=== PATIENT | female | born 1990 | race Hispanic/Latino ===

== ENCOUNTER 2021-10-27 21:28 | Emergency (ER) | payer OTHER, SELFPAY ==
--- OUTSIDE RECORDS SUMMARY | 2021-10-27 21:30 | XMS REPORT | Continuity of Care Document ---
:1990 Author Organization [facility] t Address [address] [place] [address] Care Team Providers Name Role Phone TEDDY Attending Clinician Unavailable MD BRETT ESPINAL Attending Clinician Unavailable TEDDY Admitting Clinician Unavailable MD BRETT ESPINAL Admitting Clinician Unavailable Problems This patient has no known problems. Allergies, Adverse Reactions, Alerts This patient has no known allergies or adverse reactions. Medications This patient has no known medications. Procedures This patient has no known procedures. Encounters Start End Encounter Admission Attending Care Care Encounter Source Date/Time Date/Time Type Type Clinicians Facility Department ID 2020-03-22 2020-03-24 [id number] [place] 00:00:00 00:00:00 JENN[facility]ER [address] 2020-03-21 2020-03-21 [id number] 00:[facility] 00:00:00 JENNIFER [address] Results Test Description Test Time Test Comments Results Result Comments Source SARS-CoV-2 (COVID-19) RNA [Presence] in Respiratory sp ecimen by 2020-03-21 21:45:54 NEIL with probe detection Test Item Value Reference Range Interpretation Comme nts SARS-CoV-2 (COVID-19) RNA [Presence] in Respiratory Not detected No t-Detected specimen by NEIL with probe detection (test code = 10002-8)
--- NOTE | 2021-10-27 22:11 | RAD REPORT ---
EXAM DESCRIPTION: RAD - Ankle Left 3 View -10/27/2021 10:02 pm CLINICAL HISTORY: Left ankle pain status post injury FINDINGS: Moderately displaced oblique fracture distal left fibula. Widening of the medial clear space indicative of injury to deltoid ligament.
[2021-10-27] MEDS ORDERED: FENTANYL CITR 100 MCG/2 ML ONE (22:43)
--- NOTE | 2021-10-27 23:38 | EDPHYS ---
Physician Documentation [facility] Name: Cherry Killian Age: 31 yrs Sex: Female : 1990 Arrival Date: 10/27/2021 Time: 21:29 Bed 23 Private MD: ED Physician Fabian Casiano HPI: 10/27 22:20 This 31 yrs old Female presents to ER via EMS with complaints of Ankle Injury. cp 22:20 The patient presents with decreased range of motion, a deformity, an injury, pain, that cp is acute. The complaints affect the left ankle. Onset: The symptoms/episode began/occurred just prior to arrival. Context: resulted from a mis-step by the patient, The mechanism of injury involved inversion of the affected ankle. The patient is unable to bear weight. The patient is not able to ambulate. Associated signs and symptoms: The patient has no apparent associated signs or symptoms. Patient reports history of spraining left ankle and tonight while taking out trash, rolled ankle. Patient arrives via EMS with ankle splinted. Historical: - Allergies: 21:31 No Known Allergies; ld1 - Home Meds: 21:31 None [Active]; ld1 - PMHx: 21:31 None; ld1 - PSHx: 21:31 None; ld1 - Immunization history:: Adult Immunizations up to date, Client reports receiving the 2nd dose of the Covid vaccine. - Social history:: Smoking status: Patient denies any tobacco usage or history of. Patient/guardian denies using alcohol. ROS: 22:25 MS/extremity: Positive for injury or acute deformity, decreased range of motion, cp ecchymosis, pain, swelling, tenderness, of the left ankle, Negative for paresthesias. 22:25 Constitutional: Negative for body aches, chills, fever, poor PO intake. cp 22:25 Neck: Negative for pain with movement, pain at rest, stiffness. 22:25 Cardiovascular: Negative for chest pain. 22:25 Respiratory: Negative for cough, shortness of breath, wheezing. 22:25 Abdomen/GI: Negative for abdominal pain, nausea, vomiting, and diarrhea. 22:25 Back: Negative for pain at rest, pain with movement. 22:25 Neuro: Negative for altered mental status, headache, numbness, near syncope, weakness. 22:25 All other systems are negative. Exam: 22:30 Constitutional: The patient appears in no acute distress, alert, awake, non-toxic, well cp developed, well nourished, uncomfortable. 22:30 Head/Face: Normocephalic, atraumatic. cp 22:30 Chest/axilla: Inspection: normal. 22:30 Cardiovascular: Rate: tachycardic, Pulses: Pulses are 2+ in left dorsalis pedis artery. 22:30 Respiratory: the patient does not display signs of respiratory distress, Respirations: normal, no use of accessory muscles, no retractions, labored breathing, is not present. 22:30 Abdomen/GI: Inspection: abdomen appears normal. 22:30 Back: pain, is absent, ROM is normal. 22:30 Musculoskeletal/extremity: Extremities: grossly normal except: noted in the left distal lower leg and left ankle: decreased ROM, deformity, ecchymosis, pain, swelling, tenderness, ROM: limited passive range of motion due to pain, in the left ankle, the left ankle Severe pain noted. no pain elicited while palpating left knee. 22:30 Neuro: Orientation: to person, place \T\ time. Mentation: is normal. Vital Signs: 21:30 BP 132 / 72; Pulse 91; Resp 18; Temp 98.3(TE); Pulse Ox 100% on R/A; Weight 95.25 kg; ld1 Height 5 ft. 7 in. (170.18 cm); Pain 9/10; 23:08 BP 138 / 114; Pulse 100; Resp 18; Pulse Ox 100% on R/A; ld1 21:30 Body Mass Index 32.89 (95.25 kg, 170.18 cm) ld1 Procedures: 23:55 Splinting: Splint applied to left leg using Orthoglass splint, posterior long leg and cp short leg stirrup. applied by tech. Examined by me, post splint application: neurovascular intact. MDM: 21:57 Patient medically screened. cp 23:37 Data reviewed: vital signs, nurses notes, radiologic studies, plain films. cp 23:37 Test interpretation: by ED physician or midlevel provider: plain radiologic studies. cp Counseling: I had a detailed discussion with the patient and/or guardian regarding: the historical points, exam findings, and any diagnostic results supporting the discharge/admit diagnosis, radiology results, the need for outpatient follow up, for definitive care, a orthopedic surgeon, to return to the emergency department if symptoms worsen or persist or if there are any questions or concerns that arise at home. Response to treatment: the patient's symptoms have markedly improved after treatment, and as a result, I will discharge patient. 10/27 21:30 Order name: Ankle Left 3 View XRAY; Complete Time: 23:35 ld1 10/27 22:31 Order name: IV; Complete Time: 22:50 cp 10/27 23:35 Order name: Crutches; Complete Time: 23:37 cp Administered Medications: 22:50 Drug: fentaNYL (PF) 25 mcg Route: IVP; Site: right antecubital; ld1 23:54 Drug: Hydrocodone-Acetaminophen (7.5 mg-325 mg) 1 tabs Route: PO; ld1 23:54 Drug: Ibuprofen 800 mg Route: PO; ld1 Disposition: 10/28 07:25 Co-signature as Attending Physician, Fabian Casiano MD. [email or web address] Disposition Summary: 10/27/21 23:37 Discharge Ordered Location: Home cp Problem: new cp Symptoms: have improved cp Condition: Stable cp Diagnosis - Displaced oblique fracture of shaft of left fibula, initial encounter for closed cp fracture Followup: cp - With: Jaya Maki MD - When: 1 - 2 days - Reason: Recheck today's complaints Discharge Instructions: - Discharge Summary Sheet cp - Displaced Fibular Ankle Fracture Treated With ORIF cp Forms: - Medication Reconciliation Form cp - Thank You Letter cp - Antibiotic Education cp - Prescription Opioid Use cp Prescriptions: - Ibuprofen 800 mg Oral Tablet - take 1 tablet by ORAL route every 8 hours As needed take with food; 30 tablet; cp Refills: 0, Product Selection Permitted - Tylenol-Codeine #3 300 mg-30 mg Oral - take 2 tablet by ORAL route every 6-8 hours; 20 tablet; Refills: 0, Product cp Selection Permitted Signatures: Dispatcher [employer] EDChan Toribio PA PA cp Fabian Casiano MD MD [email or web address] Paloma Lomax RN RN ld1
--- NOTE | 2021-10-27 23:38 | ER ---
Nurse's Notes [facility] Name: Cherry Killian Age: 31 yrs Sex: Female : 1990 Arrival Date: 10/27/2021 Time: 21:29 Bed 23 Private MD: Diagnosis: Displaced oblique fracture of shaft of left fibula, initial encounter for closed fracture Presentation: 10/27 21:30 Chief complaint: Patient states: I was taking out the trash this evening. Rolled my ld1 left ankle and I heard a loud pop. Pt crying upon arrival, C/O left ankle pain. Coronavirus screen: At this time, the client does not indicate any symptoms associated with coronavirus-19. Ebola Screen: No symptoms or risks identified at this time. Initial Sepsis Screen: Does the patient meet any 2 criteria? No. Patient's initial sepsis screen is negative. Does the patient have a suspected source of infection? No. Patient's initial sepsis screen is negative. Risk Assessment: Do you want to hurt yourself or someone else? Patient reports no desire to harm self or others. Onset of symptoms was October 27, 2021. 21:30 Method Of Arrival: EMS: [facility] ld1 21:30 Acuity: MERLYN 4 ld1 Triage Assessment: 21:31 General: Appears in no apparent distress. uncomfortable, Behavior is anxious, crying. ld1 Pain: Complains of pain in left lateral ankle and lateral aspect of left foot Pain does not radiate. Pain currently is 9 out of 10 on a pain scale. EENT: No signs and/or symptoms were reported regarding the EENT system. Neuro: Level of Consciousness is awake, alert, obeys commands, Oriented to person, place, time, situation. Cardiovascular: Capillary refill < 3 seconds Patient's skin is warm and dry. Respiratory: Airway is patent Respiratory effort is even, unlabored. GI: Abdomen is flat, non-distended. : No signs and/or symptoms were reported regarding the genitourinary system. Derm: No signs and/or symptoms reported regarding the dermatologic system. Musculoskeletal: Reports pain in left lateral ankle and lateral aspect of left foot. Historical: - Allergies: 21:31 No Known Allergies; ld1 - Home Meds: 21:31 None [Active]; ld1 - PMHx: 21:31 None; ld1 - PSHx: 21:31 None; ld1 - Immunization history:: Adult Immunizations up to date, Client reports receiving the 2nd dose of the Covid vaccine. - Social history:: Smoking status: Patient denies any tobacco usage or history of. Patient/guardian denies using alcohol. Screenin:33 Abuse screen: Denies threats or abuse. Denies injuries from another. Nutritional ld1 screening: No deficits noted. Tuberculosis screening: No symptoms or risk factors identified. Fall Risk None identified. Assessment: 21:33 Reassessment: See triage assessment. ld1 23:08 Reassessment: Patient appears in no apparent distress at this time. Patient is alert, ld1 oriented x 3, equal unlabored respirations, skin warm/dry/pink. Patient states feeling better. Vital Signs: 21:30 BP 132 / 72; Pulse 91; Resp 18; Temp 98.3(TE); Pulse Ox 100% on R/A; Weight 95.25 kg; ld1 Height 5 ft. 7 in. (170.18 cm); Pain 9/10; 23:08 BP 138 / 114; Pulse 100; Resp 18; Pulse Ox 100% on R/A; ld1 21:30 Body Mass Index 32.89 (95.25 kg, 170.18 cm) ld1 ED Course: 21:29 Patient arrived in ED. ld1 21:31 Triage completed. ld1 21:31 Arm band placed on right wrist. ld1 21:33 Patient has correct armband on for positive identification. Placed in gown. Bed in low ld1 position. Call light in reach. Side rails up X2. rejected items clerk on. Pulse ox on. NIBP on. Door closed. Noise minimized. Warm blanket given. 21:33 No provider procedures requiring assistance completed. ld1 21:53 Chan Guajardo PA is PHCP. cp 21:53 Fabian Casiano MD is Attending Physician. cp 22:03 Ankle Left 3 View XRAY In Process Unspecified. EDMS 22:36 Paloma Lomax, CLAUDIA is Primary Nurse. ld1 23:29 Orthoglass splint: Posterior long leg splint applied on left leg. stirrup splint oe applied on left leg. 23:36 Jaya Maki MD is Referral Physician. cp 23:54 IV discontinued, intact, bleeding controlled, No redness/swelling at site. ld1 Administered Medications: 22:50 Drug: fentaNYL (PF) 25 mcg Route: IVP; Site: right antecubital; ld1 23:54 Drug: Hydrocodone-Acetaminophen (7.5 mg-325 mg) 1 tabs Route: PO; ld1 23:54 Drug: Ibuprofen 800 mg Route: PO; ld1 Outcome: 23:37 Discharge ordered by . corbin 23:54 Discharged to home via wheelchair, with crutches, with family. ld1 23:54 Condition: stable 23:54 Discharge instructions given to patient, family, Instructed on discharge instructions, follow up and referral plans. medication usage, Demonstrated understanding of instructions, follow-up care, medications, Prescriptions given X 2. 23:55 Patient left the ED. ld1 Signatures: Dispatcher [employer] EDMS Chan Guajardo PA PA cp Espinosa, Orlando oe Dibbern, Lauren, RN RN ld1
[2021-10-27] MEDS ORDERED: HYDROCODONE/APAP 7.5/325 MG TAB ONE (23:43)
[2021-10-27] MEDS ORDERED: IBUPROFEN 400 MG TAB ONE (23:43)
[2021-10-27 23:59] VITALS: TEMP 98.3; O2SAT 100
[2021-10-28 00:19] VITALS: BP 138/114
== END 2021-10-27 23:55 | disposition home or self-care (01) ==
LOC: ER 21:28
PROC: 2W3RX1Z Immobilization of Left Lower Leg using Splint (ICD-10-PCS; principal; 2021-10-27)
DX: S82.432A Displaced oblique fracture of shaft of left fibula, initial encounter for closed fracture (principal)
CPT/HCPCS: 96374; 99284; J3010

== ENCOUNTER 2021-11-06 07:00 | Day surgery (SDC) | payer BC, SELFPAY ==
[2021-10-31 09:29] LABS: Absolute Lymphocytes (CBC) 1.5 K/uL (0.7-4.9); Hematocrit 36.1 % (36.0-45.0); Lymphocytes % 22.2 % (15.3-44.8); MPV 8.1 fL (7.6-11.3); RBC Red Blood Cell Count 4.15 M/uL (3.86-4.86)
--- NOTE | 2021-10-31 09:30 | RAD REPORT ---
EXAM DESCRIPTION: RAD - Chest Pa And Lat (2 Views) - 10/31/2021 9:25 am CLINICAL HISTORY: Pre op pending ankle ORIF COMPARISON: No comparisons FINDINGS: Lines: None. Lungs: No evidence of edema or pneumonia. Pleural: No significant pleural effusions or pneumothorax. Cardiac: The heart size is within normal limits. Bones: No acute fractures. Other: IMPRESSION: No acute cardiopulmonary disease.
[2021-10-31 09:31] LABS: Protime INR 0.96
[2021-10-31 09:58] LABS: Potassium 3.7 mmol/L (3.5-5.1)
--- NOTE | 2021-10-31 13:23 | EKG ---
Test Date: 2021-10-31 Test Time: 07:57:56 Elect Equip Maint Eng: ANANDA MEASUREMENT RESULTS: Intervals: Rate: 67 MI: 142 QRSD: 98 QT: 390 QTc: 412 [place]: P: 31 MI: 142 QRS: -3 T: -9 INTERPRETIVE STATEMENTS: Normal sinus rhythm Normal ECG No previous ECG available for comparison Electronically Signed On 10-31-21 13:22:30 CDT by Hayder Adams
[2021-11-06 07:17] LABS: Specific Gravity 1.025 (1.005-1.030)
[2021-11-06] MEDS ORDERED: Ringers Lactate 1,000 ML IV ONE (07:22)
[2021-11-06] MEDS ORDERED: CEFAZOLIN/SWI 2gm 2 GM/20 ML SYR ONE (07:22)
[2021-11-06] MEDS ORDERED: MIDAZOLAM HCL 2 MG/2 ML INJ ONE (07:38)
[2021-11-06] MEDS ORDERED: propofoL 200 MG/20 ML VIAL IV ONE (07:38)
[2021-11-06] MEDS ORDERED: dexAMETHasone 10 MG/ML VIAL ONE (07:38)
[2021-11-06] MEDS ORDERED: FENTANYL CITR 100 MCG/2 ML ONE ×2 (07:38→08:53)
[2021-11-06] MEDS ORDERED: LIDOCAINE 2% MPF 5 ML VIAL ONE (07:39)
[2021-11-06] MEDS ORDERED: ONDANSETRON 4 MG/2 ML VIAL ONE (07:39)
[2021-11-06] MEDS ORDERED: CELECOXIB 100 MG CAPSULE ONE (07:48)
[2021-11-06] MEDS ORDERED: ACETAMINOPHEN 500 MG TAB ONE (07:49)
[2021-11-06] MEDS ORDERED: KETOROLAC 30 MG/ML INJ ONE (09:47)
[2021-11-06] MEDS ORDERED: MORPHINE 10 MG/ML VIAL ONE (10:11)
--- NOTE | 2021-11-06 10:27 | P.BOP ---
Preoperative diagnosis: left bimalleolar ankle fracture with syndesmosis injury Postoperative diagnosis: same Primary procedure: ORIF left distal fibula with closed treatment posterior malleolus Secondary procedure: ORIF left ankle syndesmosis Kiss Machine Operator: NONE,NONE Estimated blood loss: 10 cc Specimen: none Findings: see dictation Anesthesia: General Complications: None Implants: Acumed 7 hole left anatomic fibula plate, 2 syndesmosis Acusinch Fluids & blood products: per anesthesia record; TT: 78 mins @ 300 mmHg Transferred to: Recovery Room Condition: Good
[2021-11-06] MEDS: HYDROMORPHONE HCL 1 MG/ML INJ ONE ×4 (10:32→10:57)
--- NOTE | 2021-11-06 10:41 | RAD REPORT ---
EXAM DESCRIPTION: RAD - Ankle Left 2 View - 11/06/2021 10:25 am CLINICAL HISTORY: Left ankle fracture/dislocation FINDINGS: Sixty intraoperative fluoroscopic spot images obtained. Fluoroscopy time 0.5 minutes. Side plate, screws and anchors have been placed into the distal tibia/fibula. Moderate to marked disp lacement of fibular fracture fragments Surgery performed by Dr. Maki
--- NOTE | 2021-11-06 10:42 | RAD REPORT ---
EXAM DESCRIPTION: RAD - Ankle Left 2 View - 11/06/2021 10:36 am CLINICAL HISTORY: Left ankle fracture FINDINGS: Sideplate, screws and anchors place into the distal fibula/tibia. Moderate to marked displacement of the fibular fracture fragments is present.
[2021-11-06] MEDS ORDERED: HYDROCODONE/APAP 7.5/325 MG TAB ONE (11:46)
[2021-11-06 13:55] VITALS: BP 148/83; TEMP 97.7; O2SAT 98
== END 2021-11-06 12:00 | disposition home or self-care (01) ==
LOC: OR 07:00
PROVIDERS: ATTEND Orthopaedic Surgery Sports Medicine
PROC: 0SSG04Z Reposition Left Ankle Joint with Internal Fixation Device, Open Approach (ICD-10-PCS; 2021-11-06)
PROC: 0QSK04Z Reposition Left Fibula with Internal Fixation Device, Open Approach (ICD-10-PCS; principal; 2021-11-06 08:00)
DX: S82.832A Other fracture of upper and lower end of left fibula, initial encounter for closed fracture (principal); S82.392A Other fracture of lower end of left tibia, initial encounter for closed fracture; S93.432A Sprain of tibiofibular ligament of left ankle, initial encounter; Z20.822 Contact with and (suspected) exposure to COVID-19
CPT/HCPCS: 93005; 85025; 80048; 36415; 81025; 85610; 85730; 71046; 73600 ×2; 27792; 27829; U0002; J2704; J2250; J3010 ×2; J1100; J1170 ×2; J0690; J7120; J2405